=== PATIENT | male | born 1995 | race Caucasian/White ===

== ENCOUNTER 2021-08-30 09:00 | Emergency (ER) | payer SELFPAY ==
[~2021-08-30] VITALS: Ht 180.3 cm; Wt 102.1 kg
--- NOTE | 2021-08-30 10:39 | NUR ---
PT WAS EVALUATED BY DR JIMÉNEZ. PT WAS D/C'd TO HOME. D/C INSTRUCTIONS GIVEN TO THE PT BY DR JIMÉNEZ.
[2021-08-30 10:40] VITALS: BP 126/78
== END 2021-08-30 10:40 | disposition home or self-care (01) ==
LOC: ER 09:00
DX: U07.1 COVID-19 (principal); R03.0 Elevated blood-pressure reading, without diagnosis of hypertension
CPT/HCPCS: 71045; A4663